=== PATIENT | female | born 1975 | race Caucasian/White ===

== ENCOUNTER 2019-04-01 11:58 | Inpatient (IN) | payer SELFPAY ==
[2019-04-01] VITALS (8 sets, daily range): BP systolic 97–122; BP diastolic 45–73
[~2019-04-01] VITALS: Ht 175.2 cm; Wt 108.1 kg
--- NOTE | ~2019-04-01 | EKG ---
[place], [place] ELECTROCARDIOGRAM REPORT NAME: CAESAR TINSLEY UNIT #: [id number] ROOM: 405 DOCTOR: ROBIN DRAFT REPORT BIRTHDATE: [birth year] 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
--- NOTE | ~2019-04-01 | EKG ---
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
--- NOTE | ~2019-04-01 | EKG ---
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
[2019-04-01 12:26] LABS: BASO # 0.1 10*3/uL (0.0-0.1); BASO % 0.5 % (0.0-1.0); EOS # 0.1 10*3/uL (0.0-0.4); EOS % 1.4 % (1.0-4.0); HEMATOCRIT 39.4 % (37.0-47.0); HEMOGLOBIN 12.8 g/dl (12.0-16.0); LYMPH # 1.9 10*3/uL (1.3-4.4); LYMPH % 18.9 % (27.0-41.0); MEAN CELL VOLUME 94.5 fl (81.0-99.0); MEAN CORPUSCULAR HGB 30.7 pg (27.0-31.0); MEAN CORPUSCULAR HGB CONC 32.5 g/dl (33.0-37.0); MEAN PLATELET VOLUME 9.9 fl (9.6-12.3); MONO # 0.8 10*3/uL (0.1-1.0); MONO % 7.8 % (3.0-9.0); PLATELET COUNT AUTOMATED 249 10*3/uL (130-400); RED BLOOD COUNT 4.17 10*6/uL (4.10-5.10); RED CELL DISTRI WIDTH 12.5 % (0-14.5); WHITE BLOOD COUNT 9.8 10*3/uL (4.8-10.8)
[2019-04-01 12:44] LABS: ALBUMIN 3.8 gm/dl (3.1-4.5); BUN 11 mg/dl (7-24); CHLORIDE 106 mmol/L (98-107); CREATININE 0.81 mg/dL (0.55-1.02); SGOT/AST 6 IU/L (3-35); SGPT/ALT 15 U/L (12-78); SODIUM 140 mmol/L (136-145); TOTAL PROTEIN 7.4 gm/dL (6.4-8.2)
[2019-04-01 12:47] LABS: ALKALINE PHOSPHATASE 52 U/L (45-117)
[2019-04-01 12:48] LABS: TROPONIN I < 0.015 ng/ml (<0.045)
[2019-04-01 12:53] LABS: ACT PARTIAL THROMBO TIME 28.8 SECONDS (20.0-32.1); INTERNATIONAL NORM RATIO 0.9 (2.0-3.5)
[2019-04-02] VITALS: BP 96/54
[2019-04-02 06:48] LABS: BASO % 0.2 % (0.0-1.0); EOS % 0.1 % (1.0-4.0); HEMATOCRIT 41.3 % (37.0-47.0); HEMOGLOBIN 13.4 g/dl (12.0-16.0); LYMPH # 1.2 10*3/uL (1.3-4.4); MEAN CELL VOLUME 93.4 fl (81.0-99.0); MEAN CORPUSCULAR HGB 30.3 pg (27.0-31.0); MEAN CORPUSCULAR HGB CONC 32.4 g/dl (33.0-37.0); MEAN PLATELET VOLUME 10.1 fl (9.6-12.3); MONO # 0.5 10*3/uL (0.1-1.0); MONO % 4.2 % (3.0-9.0); NEUT % 83.8 % (47.0-73.0); PLATELET COUNT AUTOMATED 304 10*3/uL (130-400); RED BLOOD COUNT 4.42 10*6/uL (4.10-5.10); RED CELL DISTRI WIDTH 12.4 % (0-14.5); WHITE BLOOD COUNT 10.7 10*3/uL (4.8-10.8)
[2019-04-02 07:05] LABS: ALBUMIN 3.7 gm/dl (3.1-4.5); ALKALINE PHOSPHATASE 57 U/L (45-117); BUN 12 mg/dl (7-24); CHLORIDE 107 mmol/L (98-107); CHOLESTEROL 138 mg/dL (<200); CREATININE 0.69 mg/dL (0.55-1.02); FREE T4 0.87 ng/dl (0.76-1.46); HDL CHOLESTEROL 50 mg/dl (40-60); LDL CHOLESTEROL 78 mg/dL (9-159); PHOSPHOROUS 3.8 mg/dL (2.5-4.9); POTASSIUM 4.3 mmol/L (3.5-5.1); SGOT/AST 6 IU/L (3-35); SGPT/ALT 16 U/L (12-78); SODIUM 139 mmol/L (136-145); TOTAL PROTEIN 7.3 gm/dL (6.4-8.2); TRIGLYCERIDES 52 mg/dl (<150); VLDL CHOLESTEROL 10 mg/dL (6-40)
[2019-04-02 07:10] LABS: THYROID STIM HORMONE (HS) 0.633 uIU/ml (0.358-4.75)
[2019-04-02 08:00] VITALS: BP 100/68
[2019-04-02 08:06] LABS: VITAMIN D, 25-HYDROXY 26.4 ng/mL (30-100)
[2019-04-02 12:00] VITALS: BP 99/67
[2019-04-02] MEDS ORDERED: CYCLOBENZAPRINE10 MG PO ×2 (14:33→15:24)
[2019-04-02] MEDS ORDERED: PREDNISONE10 MG PO ×2 (14:33→15:24)
[2019-04-02] MEDS ORDERED: PROTONIX TR40 MG PO (14:33)
[2019-04-02] MEDS ORDERED: PROTONIX TR40 M1 PO (15:24)
== END 2019-04-02 16:11 | disposition home or self-care (01) | DRG 392 ==
LOC: ED 11:58 → 4E 13:19 → EDHOLD 13:19 → 4E 13:43
PROVIDERS: Emergency Medicine; Registered Nurse; ADMIT Internal Medicine
DX: K21.9 Gastro-esophageal reflux disease without esophagitis (principal); F17.210 Nicotine dependence, cigarettes, uncomplicated; E83.41 Hypermagnesemia; J43.9 Emphysema, unspecified; Z82.49 Family history of ischemic heart disease and other diseases of the circulatory system; Z90.79 Acquired absence of other genital organ(s); Z90.721 Acquired absence of ovaries, unilateral; Z81.8 Family history of other mental and behavioral disorders; Z71.6 Tobacco abuse counseling